=== PATIENT | female | born 1985 | race Caucasian/White ===

== ENCOUNTER → 2016-06-13 | Outpatient (CLI) | payer BC | LOC: RAD 10:05 | PROVIDERS: ATTEND Internal Medicine | DX: Z80.3 Family history of malignant neoplasm of breast (principal) | CPT/HCPCS: A9576; C8906; 77059 ==

== ENCOUNTER → 2016-07-04 | Outpatient (CLI) | payer BC, MEDICAID | LOC: RAD 12:52 | PROVIDERS: ATTEND Internal Medicine | DX: N93.8 Other specified abnormal uterine and vaginal bleeding (principal) | CPT/HCPCS: 76830; 93976 ==

== ENCOUNTER → 2017-06-19 | Outpatient (CLI) | payer BC, MEDICAID ==
--- NOTE | 2017-06-20 14:14 | RADIOLOGY REPORT (SQ) ---
EXAM DESCRIPTION: MRI BREAST BILAT W AND/OR WO COMPLETED DATE/TIME: 06/19/2017 9:39 am REASON FOR STUDY: FAM HX OF BREAST CANCER Z80.3 FAMILY HISTORY OF MALIGNANT NEOPLASM OF BREAST COMPARISON: 2012, 2016 PATHOLOGIC CORRELATION: None. CONTRAST TYPE AND DOSE: 20 mL Prohance. RENAL FUNCTION: GFR > 60. TECHNIQUE: MR imaging performed with a dedicated breast coil. Pre contrast T1 and T2 weighted images . Pre contrast and post contrast enhanced T1 weighted images with fat saturation. Subtraction images, 3D thick and thin MIPS, and kinetic analysis performed on an independent workstat ion. ([employer] workstation) Magnet strength: 1.5 T LIMITATIONS: None. FINDINGS: BREAST DENSITY: c. The breasts are heterogeneously dense, which may obscure small masses. BACKGROUND PARENCHYMAL ENHANCEMENT:Minimal. RIGHT BREAST: No enhancing or suspicious masses. No clumped, regional/segmental ductal enhancement. CHEST WALL: Normal tissue planes. No abnormal internal mammary nodes. Implants. AXILLA: Normal axillary and retro-pectoral nodes. LEFT BREAST:No enhancing or suspicious masses. No clumped, regional/segmental ductal enhancement. CHEST WALL: Normal tissue planes. No abnormal internal mammary nodes. Implants. AXILLA: Normal axillary and retro-pectoral nodes. OTHER:No identified liver, bone, or lung lesions. No other significant incidental findings. IMPRESSION: NORMAL MR OF THE BREASTS. Implants. BIRAD: RIGHT BREAST: 2 Benign findings. LEFT BREAST: 2 Benign findings. RECOMMENDATION: RECOMMENDED FOLLOW-UP: High risk screening protocol. TECHNICAL DOCUMENTATION: JOB ID: [id number] [employer]- All Rights Reserved
== END ==
LOC: RAD 08:25
PROVIDERS: ATTEND Internal Medicine
DX: Z80.3 Family history of malignant neoplasm of breast (principal); Z98.82 Breast implant status
CPT/HCPCS: A9576; C8906; 77059

== ENCOUNTER → 2018-09-09 | Outpatient (CLI) | payer BC, MEDICAID | LOC: RAD 11:59 | PROVIDERS: ATTEND Internal Medicine | DX: Z80.3 Family history of malignant neoplasm of breast (principal) ==